=== PATIENT | female | born 1995 | race Caucasian/White ===

== ENCOUNTER 2017-09-18 20:34 | Emergency (ER) | payer BC, OTHER ==
[~2017-09-18] VITALS: Ht 172.7 cm; Wt 60.1 kg
[2017-09-18 21:11] VITALS: TEMP 36.5; Ht 172.7 cm; Wt 60.1 kg
[2017-09-18] MEDS ORDERED: ACETAMINOPHEN 500 MG TAB PO STA (22:29)
[2017-09-18] MEDS ORDERED: ONDANSETRON HOME PACK 4MG OD TAB PO ONE (22:30)
[2017-09-18] MEDS ORDERED: ONDANSETRON 4MG OD TAB PO ONE (22:30)
--- NOTE | 2017-09-18 22:51 | DIAGNOSTIC IMAGING REPORT ---
HEAD WITHOUT CONTRAST (CT) CT DOSE: 754.49 mGy.cm HISTORY: Trauma fall, head/face injury TECHNIQUE: Multiaxial CT images of the head were performed without the use of intravenous contrast. A dose lowering technique was utilized adhering to the principles of ALARA. Comparison: None. Findings: The paranasal sinuses and mastoid air cells are clear. The calvarium and skull base are intact. The ventricles and sulci are within normal limits. There is no mass, hematoma, midline shift, or acute infarct. Impression: No acute intracranial abnormality. The above report was generated using voice recognition software. It may contain grammatical, syntax or spelling errors. Electronically signed by: Arvin Ma M.D. 09/18/2017 10:50 PM Dictated Date/Time: 09/18/2017 10:49 PM
--- NOTE | 2017-09-18 22:58 | DIAGNOSTIC IMAGING REPORT ---
FACIAL BONES-MXILLOFAC WITHOUT CT DOSE: HISTORY: Trauma fall, head/face injury TECHNIQUE: Multiaxial CT images of the maxillofacial region were performed and reformatted in the coronal plane without the use of contrast. A dose lowering technique was utilized adhering to the principles of ALARA. COMPARISON: None. FINDINGS: Fracture nasal bones. This is considered nondisplaced. Nondisplaced fracture anterior wall left maxillary sinus. Nondisplaced cortical fracture anterior inferior left orbital margin. Subtle nondisplaced cortical fracture lateral wall left maxillary sinus. All remaining orbital jenkins are intact. All remaining osseous structures are intact. Mucous retention cyst left maxillary sinus. Frontal sinuses are clear as are the ethmoid and sphenoid sinuses. Globes are symmetric. IMPRESSION: 1. Fracture nondisplaced anterior inferior left orbital margin. 2. Nondisplaced cortical fracture lateral and anterior wall left maxillary sinus. 3. Nondisplaced fracture nasal bones. 4. Probable nondisplaced hairline cortical fracture mid left zygomatic arch. The above report was generated using voice recognition software. It may contain grammatical, syntax or spelling errors. Electronically signed by: Arvin Ma M.D. 09/18/2017 10:56 PM Dictated Date/Time: 09/18/2017 10:50 PM
[2017-09-19] MEDS ORDERED: AMOXICIL/CLAVU 875MG HOME PACK PO ONE
[2017-09-19] MEDS ORDERED: AMOX875T PO (00:13)
[2017-09-19 00:40] VITALS: BP 128/79; PULSE 78; O2SAT 100
--- NOTE | 2017-09-19 04:03 | EMERGENCY ROOM VISIT NOTE ---
History First contact with patient: 22:28 Chief Complaint: FALL Stated Complaint: DISORIENTED,BLURRED VISION DIZZY,FACIALBRUISE PAIN History of Present Illness The patient is a 22 year old female who presents to the Emergency Room with complaints of head injury last night. Patient states she was out last night drinking slipped and fell and hit her head. Patient states she felt dazed and confused. She then went to bed when she got home. Patient states today she has had a headache and felt lightheaded and dizzy. Patient complains of left orbital contusion and left jaw pain. Patient is unsure what she hit her face on. She has had multiple concussions in the past. Patient denies neck pain, dental pain, loss of vision, hearing problems, balance problems, chest pain, dyspnea, abdominal pain, numbness, tingling. Review of Systems An 10 system review of systems was completed with positives and pertinent negatives listed in the HPI. Past Medical/Surgical History Concussions Social History Smoking Status: Former Smoker Alcohol Use: occasionally Drug Use: none Occupation Status: [employer] student Current/Historical Medications Scheduled Amoxicillin & Pot Clavulanate (Augmentin 875-125 mg), 1 TAB PO BID Physical Exam Vital Signs Date Time Temp Pulse Resp B/P (MAP) Pulse Ox O2 Delivery O2 Flow Rate FiO2 09/19/17 00:40 78 128/79 100 09/18/17 21:11 36.5 66 18 137/90 100 Room Air Physical Exam PHYSICAL EXAM: VITALS: Vitals are noted on the nurse's note and reviewed by myself. Vital signs stable. GENERAL: Pleasant female, in no acute distress, nondiaphoretic, well-developed well-nourished. SKIN: Left orbital contusion the skin rest of the was without obvious lacerations or abrasions. Capillary reflex less than 2 seconds. HEAD: Normocephalic atraumatic. EARS: External auditory canals clear, tympanic membranes pearly grimes without erythema or effusion bilaterally. No hemotympanums. No gomez sign. No mastoid tenderness. EYES: Pupils equal round and reactive to light and accommodation. Conjunctivae without injection, sclerae without icterus. Extraocular movements intact. Fundoscopic exam without hemorrhages or papilledema. NOSE: Patent, turbinates without inflammation or discharge. No sinus tenderness. No septal hematoma or bleeding. FACE: Left-sided facial facial bone tenderness. Full range of motion of the jaw with tenderness. MOUTH: Mucous membranes moist. Pharynx without erythema or exudate. Uvula midline. Airway patent. Tongue does not deviate. NECK: Supple without nuchal rigidity. Cervical spine is nontender. Full range of motion of the neck without tenderness. No JVD. HEART: Regular rate and rhythm without murmurs gallops or rubs. LUNGS: Clear to auscultation bilaterally without wheezes, rales or rhonchi. No dullness to percussion. No retractions or accessory muscle use. No chest wall tenderness. ABDOMEN: Positive bowel sounds x 4. Normal tympanic percussion. Soft, nontender, without masses or organomegaly. No guarding or rebound tenderness. MUSCULOSKELETAL: No tenderness of the thoracic or lumbar spine. Full range of motion without tenderness to palpation in all extremities. Normal gait. Strength 5/5 throughout NEURO: Patient was alert and oriented to person place and time. Normal Mini- Mental status exam. Normal sensation to light and sharp touch. Cerebellar function intact. No focal neurological deficits. Medical Decision & Procedures Medications Administered Medications (Trade) Dose Ordered Sig/Marixa Route Start Time Stop Time Status Last Admin Dose Admin Acetaminophen (Tylenol Tab) 1,000 mg NOW STAT PO 09/18/17 22:29 09/18/17 22:33 DC 09/18/17 22:38 1,000 MG Ondansetron HCl (Zofran Odt) 4 mg ONE ONCE PO 09/18/17 22:30 09/18/17 22:33 DC 09/18/17 22:38 4 MG ED Course Prior records/ancillary studies reviewed. Triage Nursing notes reviewed. Additional history obtained from friend. The patient's history was concerning for traumatic head injury Differential diagnosis: Etiologies such as concussion, contusion, fracture, subdural hematoma, epidural hematoma, intraparenchymal hemorrhage, as well as other traumatic pathologies were entertained. Physical examination findings: As above. ER treatment provided: P.o. Tylenol Zofran ODT On reassessment the patient felt better. Diagnostics interpreted by me: Imaging studies: FACIAL BONES-MXILLOFAC WITHOUT CT DOSE: HISTORY: Trauma fall, head/face injury TECHNIQUE: Multiaxial CT images of the maxillofacial region were performed and reformatted in the coronal plane without the use of contrast. A dose lowering technique was utilized adhering to the principles of ALARA. COMPARISON: None. FINDINGS: Fracture nasal bones. This is considered nondisplaced. Nondisplaced fracture anterior wall left maxillary sinus. Nondisplaced cortical fracture anterior inferior left orbital margin. Subtle nondisplaced cortical fracture lateral wall left maxillary sinus. All remaining orbital jenkins are intact. All remaining osseous structures are intact. Mucous retention cyst left maxillary sinus. Frontal sinuses are clear as are the ethmoid and sphenoid sinuses. Globes are symmetric. IMPRESSION: 1. Fracture nondisplaced anterior inferior left orbital margin. 2. Nondisplaced cortical fracture lateral and anterior wall left maxillary sinus. 3. Nondisplaced fracture nasal bones. 4. Probable nondisplaced hairline cortical fracture mid left zygomatic arch. The above report was generated using voice recognition software. It may contain grammatical, syntax or spelling errors. HEAD WITHOUT CONTRAST (CT) CT DOSE: 754.49 mGy.cm HISTORY: Trauma fall, head/face injury TECHNIQUE: Multiaxial CT images of the head were performed without the use of intravenous contrast. A dose lowering technique was utilized adhering to the principles of ALARA. Comparison: None. Findings: The paranasal sinuses and mastoid air cells are clear. The calvarium and skull base are intact. The ventricles and sulci are within normal limits. There is no mass, hematoma, midline shift, or acute infarct. Impression: No acute intracranial abnormality. The above report was generated using voice recognition software. It may contain grammatical, syntax or spelling errors. Electronically signed by: Arvin Ma M.D. Electronically signed by: Arvin Ma M.D. Shoulder x-ray with no dislocation, fracture or effusion per my interpretation It appears the patient has a concussion. I gave my usual and customary discussion regarding this issue. Patient also has multiple facial injuries. There is no one habilitative interventionist for oral facial. Patient had no entrapment of her EOMI. She was well-appearing. She is neurovascularly neurologic intact. She is advised to sleep with her head elevated and did not forcefully blow her nose or withhold a sneeze. She was started on antibiotics. She is advised to see oral facial surgery in a day or 2. She was counseled on head injury signs and symptoms. She was strongly encouraged not to drink alcohol. She is advised to follow-up concussion clinic in a few days. Patient was advised to return to the ER immediately for headache, fevers, confusion, worsening signs or symptoms or as needed. By the evaluation outlined above emergent etiologies such as subdural hematoma , epidural hematoma, intraparenchymal hemorrhage, as well as others were deemed relatively unlikely. The pt informed about the findings as listed above. All questions were answered and pleased with the treatment. Return instructions were outlined and the patient was discharged in stable condition. Outpatient Prescription Management: Narayan Vázquez Referral: The patient was referred to oral facial surgery and health services for follow- up in 2 to 3 days for a recheck of the current condition. She is to be with my attending Medical Decision As above Head Trauma GCS Score: 15 Medication Reconcilliation Current Medication List: was personally reviewed by me Blood Pressure Screening Patient's blood pressure: Normal blood pressure Impression Primary Impression: Concussion Additional Impressions: Facial contusion Multiple facial fractures Departure Information Dispostion Home / Self-Care Condition GOOD Prescriptions Amoxicillin & Pot Clavulanate (Augmentin 875-125 mg) 1 Tab Tab 1 TAB PO BID for 10 Days, #20 TAB Prov: Milagros Loomis PA-C 09/19/17 Forms HOME CARE DOCUMENTATION FORM, School Instructions, Return To School: 2 days IMPORTANT VISIT INFORMATION Patient Instructions [facility], [facility], ED Head Injury Closed Additional Instructions Amoxicillin Clavulanate (Augmentin) 875mg: Take one pill twice daily for 10 days. All antibiotics can cause diarrhea. If this occurs and you feel worse or it does not resolve in 1-2 days follow up with your doctor or return to the Emergency Department as this could be signs of serious underlying problems. Any medication can cause an allergic reaction, stop the pills immediately and return to the ER for rash, hives, breathing difficulties, or swelling. Do not forcefully blow your nose. Sleep with your head elevated. Do not withhold a sneeze until cleared by facial surgery. Call oral surgery in the morning for follow-up for your multiple facial fractures. Head injury: Read head injury handout and return for any symptoms. Tylenol 1000 mg as needed for pain (Maximum 3000 mg Tylenol in 24 hr period). Avoid alcohol and contact sports/activities for one week and follow up with family doctor prior to returning to these activities if still symptomatic. Ice and elevate head. If your symptoms persist more than a week then follow up with the concussion clinic. Call [phone]. Return to ER sooner for headache, fevers, confusion, worsening signs or symptoms or as needed. Return to ER sooner for headache, fevers, confusion, worsening signs or symptoms or as needed. School Instructions Return To School: 2 days Problem Qualifiers Primary Impression: Concussion Encounter type: initial encounter Loss of consciousness presence/duration: without LOC Qualified Codes: S06.0X0A - Concussion without loss of consciousness, initial encounter
--- NOTE | 2017-09-19 06:52 | DIAGNOSTIC IMAGING REPORT ---
L SHOULDER MIN 2 VIEWS ROUTINE CLINICAL HISTORY: 22 years-old Female presenting with fall, left arm pain. TECHNIQUE: Internal rotation, external rotation, Grashey views of the left shoulder were obtained. COMPARISON: None. FINDINGS: Glenohumeral and acromioclavicular joints congruent. No acute fracture or malalignment. No advanced degenerative change. No radiographic soft tissue abnormality. Visualized portion of the left hemithorax normal. IMPRESSION: No acute osseous injury left shoulder. Electronically signed by: Turner Farnsworth M.D. 09/19/2017 6:50 AM Dictated Date/Time: 09/19/2017 6:49 AM
== END 2017-09-18 23:25 | disposition home or self-care (01) ==
LOC: C.EDB 20:36 → C.EDD 23:25
DX: S06.0X0A Concussion without loss of consciousness, initial encounter (principal); S00.83XA Contusion of other part of head, initial encounter; S02.92XA Unspecified fracture of facial bones, initial encounter for closed fracture; W01.198A Fall on same level from slipping, tripping and stumbling with subsequent striking against other object, initial encounter; Z87.891 Personal history of nicotine dependence